=== PATIENT | female | born 1990 | race African-American/Black ===

== ENCOUNTER → 2022-05-05 08:16 | Outpatient (BNVA) | payer BC, MEDICAID, SELFPAY | PROVIDERS: PCP Student in an Organized Health Care Education/Training Program; Visit Provider Nurse Practitioner Family | DX: M79.7 Fibromyalgia (principal); M25.50 Pain in unspecified joint; F32.A Depression, unspecified | CPT/HCPCS: 99202 ==

== ENCOUNTER 2022-05-05 09:26 | Outpatient (REF) | payer BC, MEDICAID, SELFPAY ==
[2022-05-05 11:26] LABS: MANUAL DIFF FLAG NO
[2022-05-05 11:40] LABS: Basophils Percent Auto 0.2 % (0-2); Eosinophils Absolute Auto 0.1 X10*3/uL (0.0-0.4); Eosinophils Percent Auto 2.2 % (0-4); Hematocrit 37.1 % (37.0-47.0); Imm Gran Abs Auto 0.01 X10*3/uL (0.00-0.03); Imm Gran Pct Auto 0.2 % (0.0-0.4); Lymphocytes Absolute Auto 1.6 X10*3/uL (1.2-4.9); Lymphocytes Percent Auto 32.3 % (20-40); Mean Corpuscular HGB Conc 32.3 g/dl (31.0-35.0); Mean Corpuscular Hemoglobin 26.4 pg (27.0-33.0); Mean Corpuscular Volume 81.5 fL (80.0-98.0); Mean Platelet Volume 10.1 fL (9.4-12.3); Monocytes Absolute Auto 0.3 X10*3/uL (0.1-1.2); Monocytes Percent Auto 6.1 % (2-11); Platelet Count 464 X10*3/uL (160-400); Red Blood Count 4.55 X10*6/uL (4.20-5.50); Red Cell Distribution Width 13.8 % (11.0-16.0); White Blood Count 5.1 X10*3/uL (4.8-10.8)
[2022-05-05 11:51] LABS: Alanine Aminotransferase 18 U/L (0-31); Albumin Level 4.2 g/dL (3.5-5.0); Alkaline Phosphatase 57 U/L (39-117); Anion Gap 12 (12-20); Aspartate Amino Transferase 16 U/L (5-31); Bilirubin Total 1.2 mg/dL (0.0-1.0); Blood Urea Nitrogen 11 mg/dL (9-16); C Reactive Protein 0.99 mg/dL (< or = 0.50); Calcium 9.1 mg/dL (8.4-10.2); Carbon Dioxide 24 mmol/L (22-29); Chloride 106 mmol/L (96-108); Estimated Glomerular Filt Rate > 60; Glucose Random 82 mg/dL (60-115); Potassium 4.3 mmol/L (3.3-5.1); Rheumatoid Factor < 13.0 IU/mL (<15.0); Sodium 138 mmol/L (135-145)
[2022-05-05 12:24] LABS: Erythrocyte Sedimentation Rate 25 MM/HR (0-20)
[2022-05-05 14:03] LABS: Creatinine Urine 199.83 mg/dL; Protein/Creatinine Ratio, Ur 0.04 (<0.2); Total Protein Urine Random 8 mg/dL (<12)
[2022-05-07 13:58] LABS: Cyclic Citrullinated Peptide <16 UNITS
[2022-05-09 15:53] LABS: Anti Nuclear Antibody Screen POSITIVE (NEGATIVE)
== END 2022-05-05 09:27 | disposition home or self-care (01) ==
LOC: HO.10HDL 09:26
PROVIDERS: Visit Provider Nurse Practitioner Family
DX: M79.7 Fibromyalgia (principal); M25.50 Pain in unspecified joint; F32.A Depression, unspecified
CPT/HCPCS: 36415; 80053; 84156; 85025; 85652; 86038; 86039; 86140; 86200; 86431

== ENCOUNTER 2022-06-23 10:35 | Outpatient (REF) | payer BC, MEDICAID, SELFPAY ==
[2022-06-23 14:12] LABS: Creatinine Urine 106.53 mg/dL; Total Protein Urine Random < 7 mg/dL (<12)
[2022-06-24 13:39] LABS: Complement C3 161 mg/dL (83-193)
[2022-06-26 13:38] LABS: Anti DNA DS Antibody <1 IU/mL
[2022-07-02 14:33] LABS: DNAds, Crithidia Antibody Negative (Negative)
== END 2022-06-23 10:36 | disposition home or self-care (01) ==
LOC: HO.10HDL 10:35
PROVIDERS: Visit Provider Nurse Practitioner Family
DX: R76.8 Other specified abnormal immunological findings in serum (principal)
CPT/HCPCS: 36415; 84156; 86160; 86225; 86255

== ENCOUNTER 2022-10-15 11:29 | Outpatient (AMB) | payer BC, MEDICAID, SELFPAY ==
[2022-10-15 11:33] VITALS: BP 125/82; PULSE 83; RESP 15; TEMP 36.5; O2SAT 100; BMI 44.6
--- NOTE | 2022-10-15 11:33 | MHC.OFFVIS ---
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 Allergies house dust Allergy (Unknown, Verified 10/15/22 11:35) Unknown Seasonal Allergies Allergy (Unknown, Verified 10/15/22 11:35) Unknown nuts Allergy (Unknown, Uncoded 10/15/22 11:35) Unknown tree extract Allergy (Unknown, Uncoded 10/15/22 11:35) Unknown Medication List - Last Reconciled 10/15/22 by Carolina Nunn RN cetirizine (Allergy Relief (cetirizine)) 5 mg PO DAILY PRN diclofenac sodium 75 mg PO BID escitalopram oxalate 20 mg PO DAILY etonogestrel (Nexplanon) subdermal folic acid 0.8 mg PO DAILY ketoconazole 1% 1 appl topical 2XW tretinoin 0.025% 1 appl topical BEDTIME HPI HPI Comments History of Present Illness Details The patient presents today for evaluation of increased muscle and joint pains. She is thought to have fibromyalgia and also has a positive LIZBETH. Serology workup beyond the LIZBETH was done but did not reveal any positive results. She had called a week or 2 ago with increased pain localized to the shoulders, hands, knees and feet. I had prescribed 75 mg diclofenac twice a day and that seemed to improve symptoms and she is now down to just taking 75 mg once a day. She thinks there was swelling of the hands and feet. She had no associated fever, chills, oral ulcers, chest pain or abdominal pain. She did have some headache. There is no prodromal illness involved in this flare-up of pains. She remains on escitalopram for depression. She takes folic acid daily because of a fine tremor. [facility] Medical History Allergic rhinitis Anemia Depression Eczema Fibromyalgia Scoliosis Surgical History Previous section Family History Father Alcohol abuse Drug abuse Social History Household Members: Children Alcohol intake: never Patient Tobacco Use Status: Never used Tobacco Current occupational status: employed Current occupation: Temporary Receptionist Review of Systems Const Details: Some weight gain this year. Negative for appetite change, fever, chills, malaise and fatigue Eyes Details: She had a headache but it subsided. Negative for vision change, dry eyes, and dizziness ENT Details: Negative for hearing change, tinnitus, oral ulcer, nose bleeds and oral dryness. Card Details: Negative chest pain, edema and syncope Resp Details: Negative for SOB, cough and wheezing GI Details: Negative indigestion/heartburn, nausea, abdominal pain, bowel changes, diarrhea, constipation and bloody stool. Skin/Breast Details: Negative for itching, rash, hives, Raynaud's symptoms, sun sensitivity, and skin cancer Neuro Details: Negative for epilepsy, palsy, stroke, changes in speech, tingling and weakness Psych Details: anxiety, depression seem controlled. Endo Details: Negative for polyuria and polydypsia Lopez/Lymph Details: Negative for excessive bruising or bleeding. Physical Exam Vital Signs: Last Vital Signs Temp 97.7 F 10/15/22 11:33 Pulse 83 10/15/22 11:33 Resp 15 10/15/22 11:33 BP 125/82 10/15/22 11:33 Pulse Ox 100 10/15/22 11:33 Oxygen Delivery Method Room Air 10/15/22 11:33 BMI result Body Mass Index 44.6 APPEARANCE: Patient in no acute distress EYES no redness, pupils equal and reactive to light, eyelids normal EARS: External ear normal, canal clear and tympanic membrane normal. NOSE/SINUS: Airflow through both nares, no nasal discharge, no bleeding THROAT: Oral mucosa moist, no ulcerations NECK: No thyromegaly or masses, no adenopathy, trachea midline. HEART: Regulrar rhythm, S1-S2 heard, no murmurs, rubs or gallops. LUNG: Clear to percussion and auscultation ABD: Normal bowel sounds, no organomegaly, masses or tenderness. EXTREMITIES: No edema, no calf tenderness, normal peripheral pulses. NEURO: Oriented and alert x3. No focal weakness. Reflexes symmetric. Gait normal. SKIN: No inflammatory or neoplastic lesions. Normal color and turgor JOINT EXAM:.?? Cervical Spine:.? Full range of motion without pain; no tenderness. Thoracic Spine:.? No scoliosis.? No tenderness on palpation. Lumbar Spine:.? Alignment normal.? Slight discomfort with extremes of range of motion. No tenderness. Chest Wall:.? No tenderness, swelling, increased warmth or erythema. Hands:.? Normal pain-free range of motion. There is some slight tenderness in the PIP joints in both hands but no swelling is appreciated. No flexor tendon triggering, loss sensory loss, swelling, increased warmth or erythema. Wrists:.? Mild pain with 80 degrees flexion extension with some slight tenderness but no swelling, increased warmth or erythema. Elbows:. Normal pain-free range of motion without tenderness, swelling, increased warmth or erythema. Shoulders:? Full range of motion without pain. There is some mild anterior tenderness without adenopathy, swelling, weakness, increased warmth or erythema. Hips:? Full range of motion without pain. Hip bursa:? No tenderness. Knees:.?? Normal pain-free range of motion wit slight medial pain. No effusion,swelling, increased warmth or erythema.? There is no effusion or crepitation Ankles:.? Normal pain-free range of motion without tenderness, swelling, increased warmth or erythema. Feet:.? Normal pain-free range of motion without tenderness, swelling, increased warmth or erythema. Tender points:.? mild tenderness to digital palpation at the trapezius, lateral epicondyle, knees, greater trochanter and gluteal area bilaterally. ? Results Reviewed Results Reviewed: Laboratory Tests 05/05/22 05/05/22 05/05/22 09:38 09:38 09:38 WBC 5.1 Hgb 12.0 ESR 25 H Creatinine 0.74 AST 16 ALT 18 C-Reactive Protein 0.99 H Laboratory Tests 05/05/22 06/23/22 09:38 10:46 LIZBETH Titer 1:160 H Double Strand DNA Ab <1 Anti-ds DNA (Crithidia) Negative Complement C3 161 Complement C4 20 Assessment & Plan Assessment & Plan (1) LIZBETH positive: Code(s): R76.8 - Other specified abnormal immunological findings in serum (2) Fibromyalgia: Code(s): M79.7 - Fibromyalgia Plan There are many areas of pain and tenderness but no signs of an active inflammatory arthritis. She does have a positive LIZBETH which raises the question of whether she could develope SLE. She did have significant blood work done earlier this year that was all negative. We will check repeat CBC, inflammatory markers and urine protein. Most likely however I think we are dealing with fibromyalgia. She seems to have some improvement with the diclofenac so that could be continued and then used as a p.r.n. medication in the future. We will figure out follow-up once her lab work comes back. Orders: Orders Thyroid Stimulating Hormone Today M79.7 - Fibromyalgia, R76.8 - Other specified abnormal immunological findings in serum Coding Level of Care Code Est Pt Level 3 (51200) Diagnoses LIZBETH positive R76.8 Fibromyalgia M79.7
== END 2022-10-15 12:43 | disposition home or self-care (01) ==
PROVIDERS: PCP Student in an Organized Health Care Education/Training Program; Visit Provider Internal Medicine Rheumatology
DX: R76.8 Other specified abnormal immunological findings in serum (principal); M79.7 Fibromyalgia
CPT/HCPCS: 99213

== ENCOUNTER → 2022-10-15 11:29 | Outpatient (BNVA) | payer BC, MEDICAID, SELFPAY | PROVIDERS: PCP Student in an Organized Health Care Education/Training Program; Visit Provider Internal Medicine Rheumatology ==

== ENCOUNTER 2025-02-13 14:29 | Outpatient (AMB) | payer BC, MEDICAID, SELFPAY ==
--- NOTE | 2025-02-13 14:30 | A.OFFVIS_ITS ---
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 Started a few years ago. 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 She comes to us for 2nd opinion. Complaints include pain over varicosities, swelling of lower extremities, and itching. It appears to be affecting both her lower extremities.. It has been affecting there daily activities including walking and working as an miscellaneous machine operator bricklayer apprentice. It is noted more so in right leg. Also of note has a history of fibromyalgia Patient denies any previous venous surgery or injections. Patient denies any history of DVT/ PE. Patient denies any history of phlebitis. Trial of compression includes - [id number] They now present for vascular evaluation regarding their varicose veins. [facility] Medical History Fibromyalgia Allergic rhinitis Depression Eczema Anemia Scoliosis Surgical History Previous section Family History Father Alcohol abuse Drug abuse Social History Household Members: Children Alcohol intake: never Patient Tobacco Use Status: Never used Tobacco Current occupational status: employed Current occupation: [employer] Hand Review of Systems Const Reports as per HPI ENT Reports no additional complaints Card Denies chest pain, Denies chest pain at rest and Denies chest pain with activity Resp Denies chest congestion and Denies cough GI Reports no additional complaints Musc Details: pain over varicosities, aching of lower extremities, swelling, cramping, heaviness and tiredness, itching Denies abnormal gait Skin/Breast Reports pruritus and Denies wounds Neuro Reports no additional complaints and Denies abnormal gait Psych Denies no additional complaints Physical Exam Vital Signs: BMI result Body Mass Index 40.6 Const General: cooperative, healthy appearing and comfortable Orientation/consciousness: oriented to person, oriented to place and oriented to time Neck Carotids: no bruits Chest Chest palpation & inspection: normal inspection of the chest and normal palpation of entire chest wall Resp Effort & Inspection: normal respiratory effort and able to speak in complete sentences Cardio Rate: regular rate Heart sounds: S1 normal heart sound present and S2 normal heart sound present Peripheral pulses: Peripheral pulses 2+ throughout GI Inspection: Yes normal to inspection Skin Other: +2 edema, right greater than left CEAP Classification C4 - skin color changes Ep - Etiology Primary As - superficial veins P - reflux General skin exam: dry skin Neuro General: oriented to person, oriented to place and oriented to time Extrem Right lower extremity: full ROM, normal capillary refill and edema Left lower extremity: full ROM, normal capillary refill and edema Psych Mental Status: mental status grossly normal Assessment & Plan Assessment & Plan (1) Varicose veins of right lower extremity with inflammation: Code(s): I83.11 - Varicose veins of right lower extremity with inflammation Category: Medical Plan: In short, the patient has evidence of venous insufficiency. I have discussed the pathophysiology with the patient. In addition I have provided informational material regarding venous disease to the patient. We have discussed conservative measures including compression, elevation, and exercise. I have also provided a handout regarding appropriate use of compression stockings and where to purchase good compression stockings as well. I have taken the liberty of ordering venous insufficiency testing with the patient. They will follow up with me after testing. The patient had an opportunity to ask questions regarding the treatment plan. All questions were answered. Imaging studies, laboratory studies and physical e xam results were discussed and reviewed in detail. No major barriers to understanding were identified. The patient expressed understanding and agreement with the above treatment plan. The patient is aware they should contact our office by phone for worsening of the current condition or the appearance of new symptoms. Thank you for allowing me to participate in the vascular care of this patient. If you have any questions or concerns regarding the treatment for the above condition please do not hesitate to contact me. The office telephone contact is [phone]. This note is constructed using voice recognition software. While every effort has been made to ensure accuracy, pool technician errors may have been included. Thank you for allowing me to participate in the care of your patient. Yours sincerely, Atul Murcia MD, FACS, R.P.V.I. Orders: Orders US venous duplex LE Today I83.11 - Varicose veins of right lower extremity with inflammation Coding Level of Care Code New Pt Level 4 (09551) Diagnoses Varicose veins of right lower extremity with inflammation I83.11
[2025-02-13 14:31] VITALS: BMI 40.6
== END 2025-02-13 15:10 | disposition home or self-care (01) ==
LOC: HO.HVS 14:29
PROVIDERS: PCP Student in an Organized Health Care Education/Training Program; Visit Provider Surgery Vascular Surgery
DX: I83.11 Varicose veins of right lower extremity with inflammation (principal)
CPT/HCPCS: 99204